=== PATIENT | female | born 1980 | race Caucasian/White ===

== ENCOUNTER → 2019-04-27 | Emergency (ER) | payer OTHER ==
[~2019-04-27] VITALS: Ht 154.9 cm; Wt 78.0 kg
[~2019-04-27] MED LIST: DICL100G37 TOP; HYDR-4011 PO; KETOROLAC 60 MG INJ IM STA; NAPR-985 PO
[2019-04-27 09:16] VITALS: BP 138/76; PULSE 80; RESP 18; Ht 154.9 cm; Wt 78.0 kg
--- NOTE | 2019-04-27 10:18 | ERD ---
ER Documentation Chief Complaint Chief Complaint right shoulder pain HPI 39-year-old female presenting with right-sided shoulder pain x3 days. Patient does a lot of heavy lifting and overhead lifting at work. She is right-hand dominant. Denies any numbness or tingling. She took some Tylenol which alleviates symptoms but pain returned. Denies any numbness or weakness. Denies other medical problems. NKDA. Surgical history denies. Social history denies ROS All systems reviewed and are negative except as per history of present illness. Medications Home Meds Active Scripts Hydrocodone/Acetaminophen ([place] 5-325 Tablet) 1 Each Tablet, 1 TAB PO Q6H PRN for PAIN, #7 TAB Prov:LACHELLE PIZARRO PA-C 04/27/19 Naproxen* (Naprosyn*) 500 Mg Tablet, 500 MG PO BID PRN for PAIN AND/OR INFLAMMATION, #30 TAB Prov:LACHELLE PIZARRO PA-C 04/27/19 Diclofenac Sodium* (Voltaren* Gel) 1% -100 Gm Gel, 4 GM TOP QID, #1 TUB Prov:LACHELLE PIZARRO PA-C 04/27/19 Allergies Allergies: Coded Allergies: No Known Allergy (Unverified , 04/27/19) PMhx/Soc Medical and Surgical Hx: pt denies Medical Hx, pt denies Surgical Hx Hx Alcohol Use: No Hx Substance Use: No Hx Tobacco Use: No Smoking Status: Never smoker FmHx Family History: No diabetes, No coronary disease, No other Physical Exam Vitals Vital Signs Date Temp Pulse Resp B/P (MAP) Pulse Ox O2 O2 Flow FiO2 Time Delivery Rate 04/27/19 98.3 80 18 138/76 99 09:16 (96) Physical Exam GENERAL: The patient is well-appearing, well-nourished, in no acute distress HEENT: Atraumatic. Conjunctivae are pink. Pupils equal, round, and reactive to light. There is no scleral icterus. Tympanic membranes clear bilaterally. Oropharynx clear. CHEST: Clear to auscultation bilaterally. There are no rales, wheezes or rhonchi. HEART: Regular rate and rhythm. No murmurs, clicks, rubs or gallops. EXTREMITIES: Limited range of motion of the right upper extremity. No obvious deformity. Pulses intact to the distal extremity. NEUROLOGIC: Alert and oriented. Cranial nerves II through XII intact. Motor strength in all 4 extremities with 5 out of 5 strength. Sensation grossly intac t. Normal speech and gait. SKIN: There is no apparent rash or petechiae. The skin is warm and dry. Results 24 hrs Laboratory Tests Test 04/27/19 09:40 POC Beta HCG, Qualitative NEGATIVE Current Medications Medications Dose Sig/Rosey Start Time Status Last (Trade) Ordered Route PRN Stop Time Admin Dose Reason Admin Ketorolac 60 mg ONCE STAT 04/27/19 DC 04/27/19 Tromethamine IM 09:29 04/27/19 09:55 (Toradol) 09:31 Procedures/MDM DIAGNOSTIC IMAGING REPORT Patient: MARCELLA KAN : 1980 Age: 39 Sex: F MR #: [id number] DOS: 04/27/[birth year]29 Ordering MD: DIANN PIZARRO PA-C Location: [facility] Room/Bed: PROCEDURE: Right shoulder series CLINICAL INDICATION: Pain TECHNIQUE: 3 views right shoulder were obtained COMPARISON: None FINDINGS: Coarse calcifications along the superior lateral right humeral head consistent with calcific tendonitis. 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 No acute fractures dislocation or AC separation. No focal bony blastic or lytic lesions. IMPRESSION: 1. No acute fracture dislocation or AC separation. 2. Calcific tendonitis. 3. Degenerative changes as above. ER Course: Sling given the ED. DM: 39-year-old female presenting with arm pain. I have low suspicion for acute fracture dislocation. I have low suspicion for tendon or ligament rupture. Patient likely has tendinitis given her repetitive movement at work with heavy lifting. Patient will be discharged with strict your precautions and recommended to follow-up with primary care. Patient is recommended to continue movement at home to prevent adhesive capsulitis. All questions answered at discharge Departure Diagnosis: Primary Impression: Tendonitis Condition: Stable Patient Instructions: Tendonitis Referrals: COMMUNITY CLINICS YOU HAVE RECEIVED A MEDICAL SCREENING EXAM AND THE RESULTS INDICATE THAT YOU DO NOT HAVE A CONDITION THAT REQUIRES URGENT TREATMENT IN THE EMERGENCY DEPARTMENT. FURTHER EVALUATION AND TREATMENT OF YOUR CONDITION CAN WAIT UNTIL YOU ARE SEEN IN YOUR DOCTORS OFFICE WITHIN THE NEXT 1-2 DAYS. IT IS YOUR RESPONSIBILITY TO MAKE AN APPOINTMENT FOR FOLOW-UP CARE. IF YOU HAVE A PRIMARY DOCTOR --you should call your primary doctor and schedule an appointment IF YOU DO NOT HAVE A PRIMARY DOCTOR YOU CAN CALL OUR PHYSICIAN REFERRAL HOTLINE AT IF YOU CAN NOT AFFORD TO SEE A PHYSICIAN YOU CAN CHOSE FROM THE FOLLOWING [facility] [id number] [facility] [address] [facility] [address] [facility] [address] [facility] [address] [facility]. [facility]. [address] [facility] Hours: Mon-Fri 9:00 AM - 5:00 PM Additional Instructions: FOLLOW UP WITH YOUR PRIMARY CARE PHYSICIAN TOMORROW.Return to this facility if you are not improving as expected. LACHELLE PIZARRO PA-C Apr 27, 2019 10:18
== END | disposition home or self-care (01) ==
LOC: FTE 09:13
DX: M77.9 Enthesopathy, unspecified (principal)
CPT/HCPCS: 73030; 81025; 96372; J1885; Z7502